=== PATIENT | male | born 1965 | race Caucasian/White ===

== ENCOUNTER → 2016-02-25 | Outpatient (CLI) | payer BC ==
[~2016-02-25] MED LIST: ASPCH81X PO; ATEN50TA8 PO; ATOR-22 PO; ATV/1 PO; ONDA4TAB65 PO; PANT40TA PO
--- NOTE | 2016-02-25 09:10 | DIAGNOSTIC IMAGING REPORT ---
ULTRASOUND RIGHT UPPER QUADRANT ABDOMEN CLINICAL HISTORY: Right upper quadrant abdominal pain. Hemangiomas. COMPARISON STUDY: Abdominal ultrasound dated 04/22/2015. Abdominal CT dated 03/07/2013. TECHNIQUE: Real-time, grayscale, and color flow sonography of the right upper quadrant of the abdomen was performed. Images are reviewed in the transverse and longitudinal planes. FINDINGS: Liver: The liver is normal in size and echotexture. There is a 1.4 cm well-circumscribed hyperechoic lesion the right hepatic lobe. This is unchanged from prior studies. The second smaller lesion seen loosely was not visualized. There is no intrahepatic biliary ductal dilatation. The main portal vein is patent. Gallbladder: The gallbladder is normal in appearance. No gallstones are identified. There is no gallbladder wall thickening or pericholecystic fluid. A sonographic Gomez's sign is reportedly absent. The common bile duct measures up to 0.3 cm in diameter. Pancreas: Visualized portions of the pancreatic head and body are normal in appearance. Right kidney: Survey images of the right kidney demonstrate normal size and echotexture. 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 There is no hydronephrosis of the right renal moiety. A 1.3 cm cyst is unchanged. Ascites: None. IMPRESSION: 1. A 1.4 cm well-circumscribed hyperechoic lesion in the right lobe of the liver is unchanged and typical in appearance for a benign hemangioma. 2. The second smaller hyperechoic lesion seen on 04/22/2015 was not visualized on today's examination. Both of these were present on the 03/07/2013 CT scan and are of doubtful significance. 3. A horseshoe kidney is incidentally noted and unchanged. Electronically signed by: Glen Irizarry M.D. 02/25/2016 9:08 AM Dictated Date/Time: 02/25/2016 9:04 AM
== END | disposition home or self-care (01) ==
LOC: C.ULTR 08:14
PROVIDERS: ATTEND Family Medicine
DX: R93.5 Abnormal findings on diagnostic imaging of other abdominal regions, including retroperitoneum (principal)

== ENCOUNTER → 2017-05-16 | Outpatient (CLI) | payer OTHER ==
--- NOTE | 2017-05-16 09:13 | DIAGNOSTIC IMAGING REPORT ---
ABDOMEN LIMITED (US) CLINICAL HISTORY: E78.5 abdominal pain COMPARISON STUDY: 02/25/2016 FINDINGS: The pancreas appears normal as visualized. The gallbladder appears sonographically normal. There is no ductal dilatation. The common bile duct measures 5 mm. The previously identified hyperechoic hepatic lesion was not visualized the current study. This may be related to technical factors, as this lesion was visualized in both a prior ultrasound and CT scan. There is no right-sided hydronephrosis. There is a suspected horseshoe kidney. Several renal cysts are visualized, the largest of which measures 14 mm. IMPRESSION: 1. Horseshoe kidney 2. Ultrasonographically normal gallbladder and pancreas 3. The previously identified 14 mm hyperechoic lesion within the right lobe of the liver was not visualized the current study Electronically signed by: Arnold Alexandra M.D. 05/16/2017 9:12 AM Dictated Date/Time: 05/16/2017 9:09 AM
== END | disposition home or self-care (01) ==
LOC: C.ULTR 08:10
PROVIDERS: ATTEND Family Medicine
DX: E78.5 Hyperlipidemia, unspecified (principal)